=== PATIENT | female | born 1975 | race African-American/Black ===

== ENCOUNTER 2023-02-14 22:25 | Observation (INO) | payer SELFPAY ==
[2023-02-15 00:15] VITALS: BMI 38.7
[2023-02-15 00:34] LABS: Iron 20 ug/dL (50-170); Iron Binding Capacity, Total 388 mcg/dL (265-497)
[2023-02-15] MEDS ORDERED: Acetaminophen 325 MG TAB PO PRN (00:41)
[2023-02-15] MEDS ORDERED: Acetaminophen 650 MG Suppository PR PRN (00:41)
[2023-02-15] MEDS ORDERED: Ondansetron ODT 4 MG TAB PO PRN (00:41)
[2023-02-15] MEDS ORDERED: Ondansetron PF 4 MG/2 ML Vial IVP PRN (00:41)
[2023-02-15] MEDS ORDERED: Amlodipine 10 MG TAB PO SCH (01:45)
[2023-02-15 02:15] LABS: Hemoglobin 6.2 g/dL (12.0-16.0)
[2023-02-15 08:23] LABS: #Basophils 0.1 thou/uL (0.0-0.2); #Eosinphils 0.1 thou/uL (0.0-0.7); #Lymphocytes 1.5 thou/uL (1.20-3.40); #Monocytes 0.4 thou/uL (0.11-0.59); #Neutrophils 8.2 thou/uL (1.40-6.50); %Basophils 0.6 % (0.0-1.0); %Eosinophils 0.8 % (0.0-10.0); %Lymphocytes 14.7 % (21.0-51.0); %Monocytes 3.5 % (0.0-10.0); %Neutrophils 80.4 % (42.0-75.0); Hemoglobin 7.5 g/dL (12.0-16.0); Mean Corpuscular HGB CONC 31.8 g/dL (32.0-36.0); Mean Corpuscular Hemoglobin 23.7 pg (27.0-31.0); Mean Corpuscular Volume 74.4 fl (78.0-98.0); Mean Platelet Volume 10.2 fL (7.4-10.4); Platelet Count 126 10x3/uL (130-400); RBC Distribution Width 25.5 % (11.5-14.5); Red Blood Cell (RBC) Count 3.17 mill/uL (4.20-5.40); White Blood Cell (WBC) Count 10.1 10x3/uL (4.8-10.8)
[2023-02-15 08:43] LABS: Anion Gap 11 mmol/L (10-20); BUN (Urea Nitrogen) 6 mg/dL (7.0-18.7); Calc. Creatinine Clearance 128 mL/min (70-130); Calcium 8.4 mg/dL (7.8-10.44); Carbon Dioxide 24 mmol/L (22-29); Chloride 110 mmol/L (98-107); Estimated GFR 91; Glucose 113 mg/dL (70-105); Potassium 3.6 mmol/L (3.5-5.1); Sodium 141 mmol/L (136-145)
[2023-02-15 08:45] LABS: Anisocytosis MODERATE=16-30 cells (100X) (0-5/hpf); Hypochromia SLIGHT = 6-15 cells (100X) (0-5/hpf); MDiff Complete? YES; Microcytosis SLIGHT = 6-15 cells (100X) (0-5/hpf); Ovalocytes SLIGHT = 2-5 cells (100X) (0-1/hpf); Platelet Morphology Comment Appears Decreased; Polychromasia MODERATE = 3-4 cells (100X) (0-2/hpf); Tear Drops SLIGHT = 2-5 cells (100X) (0-1/hpf)
[2023-02-15 13:29] VITALS: BP 157/84; TEMP 98.2
[2023-02-15] MEDS ORDERED: diphenhydrAMINE 25 MG CAP PO SCH (16:15)
[2023-02-15] MEDS ORDERED: Acetaminophen 500 MG TAB PO SCH (16:15)
[2023-02-16] MEDS ORDERED: Amlodipine 10 MG TAB PO SCH (09:00)
== END 2023-02-15 18:00 | disposition home or self-care (01) ==
LOC: MSONC 23:47
PROVIDERS: ADMIT Hospitalist; ATTEND Hospitalist
DX: D50.0 Iron deficiency anemia secondary to blood loss (chronic) (principal); N92.0 Excessive and frequent menstruation with regular cycle; D25.9 Leiomyoma of uterus, unspecified; D69.6 Thrombocytopenia, unspecified; I11.9 Hypertensive heart disease without heart failure; I08.8 Other rheumatic multiple valve diseases; Z79.899 Other long term (current) drug therapy; Z88.5 Allergy status to narcotic agent
CPT/HCPCS: 36415; 36430; 76705; 80048; 82728; 83540; 83550; 85014; 85018; 86850; 86900; 86901; 93306; G0378; P9016